=== PATIENT | male | born 1985 | race Two or more races ===

== ENCOUNTER 2019-03-03 21:00 | Emergency (ER) | payer MEDICARE, MEDICAID ==
[~2019-03-03 21:00] MED LIST: Phenytoin 100 MG Cap.ER ONE
[2019-03-03] MEDS ORDERED: Sodium Chloride 0.9% 1,000 ML IV ONE (21:23)
--- NOTE | 2019-03-03 23:43 | EDM.PDOC ---
ED HPI GENERAL MEDICAL PROBLEM - General Chief Complaint: General Stated Complaint: SEIZURE Time Seen by Provider: 03/03/19 21:40 Source of Information: Reports: Patient, Family History Limitations: Reports: Other (Patient has history of schizophrenia and possible delayed learning) - History of Present Illness INITIAL COMMENTS - FREE TEXT/NARRATIVE: This is a 33yo M brought into the ER for a grand mal seizure. He has had an initial episode about 1 year ago and was started on dilantin. He was out in the very warm weather today with a noticeable sun burn on b/l shoulders. He was outside for hours. He states at this time in the ER he feels much better already but groggy from the recent events. He has been taking his medications regularly but only takes his dilantin at night. Onset: Sudden Duration: Resolved Prior to Arrival Location: Reports: Generalized - Related Data Allergies Allergy/AdvReac Type Severity Reaction Status Date / Time No Known Allergies Allergy Verified 03/03/19 21:09 ED ROS GENERAL - Review of Systems Review Of Systems: ROS reveals no pertinent complaints other than HPI. ED EXAM, GENERAL - Physical Exam Exam: See Below Exam Limited By: No Limitations General Appearance: Alert, WD/WN, No Apparent Distress Eye Exam: Bilateral Eye: EOMI, PERRL Ears: Normal External Exam Nose: Normal Inspection Throat/Mouth: Normal Inspection Head: Atraumatic, Normocephalic Neck: Normal Inspection Respiratory/Chest: No Respiratory Distress, Lungs Clear, Normal Breath Sounds Cardiovascular: Normal Peripheral Pulses, Regular Rate, Rhythm Peripheral Pulses: 2+: Dorsalis Pedis (L), Dorsalis Pedis (R) GI/Abdominal: Normal Bowel Sounds Back Exam: Normal Inspection Extremities: Normal Inspection Neurological: Alert, Slow to Respond (He is at baseline per family) Psychiatric: Normal Affect, Normal Mood Skin Exam: Warm, Dry, Intact Course - Orders/Labs/Meds Orders: Active Orders 24 hr Category Date Time Status LITHIUM (ESKALITH(R)), SERUM Stat Lab 03/03/19 21:05 Received Labs: Laboratory Tests 03/03/19 03/03/19 Range/Units 21:05 21:05 WBC 8.0 (4.0-11.0) K/uL RBC 4.47 L (4.50-6.50) M/uL Hgb 13.9 (13.0-18.0) g/dL Hct 40.7 (40.0-54.0) % MCV 91 (76-96) fL MCH 31.1 (27.0-32.0) pg MCHC 34.2 (31.0-35.0) g/dL RDW 13.5 (11.0-16.0) % Plt Count 179 (150-400) K/uL MPV 10.8 H (6.0-10.0) fL Neut % (Auto) 65.1 (45.0-70.0) % Lymph % (Auto) 22.3 (20.0-40.0) % Boone % (Auto) 12.5 H (3.0-10.0) % Eos % (Auto) 0.0 L (1.0-5.0) % Baso % (Auto) 0.1 (0.0-0.5) % Neut # (Auto) 5.23 (2.00-7.50) K/uL Lymph # (Auto) 1.79 (1.50-4.00) K/uL Boone # (Auto) 1.00 H (0.20-0.80) K/uL Eos # (Auto) 0.00 L (0.04-0.40) K/uL Baso # (Auto) 0.01 L (0.02-0.10) K/uL Sodium 142 (136-145) mmol/L Potassium 4.3 (3.5-5.1) mmol/L Chloride 107 (98-107) mmol/L Carbon Dioxide 24.3 (21.0-32.0) mmol/L Anion Gap 15.0 (5.0-15.0) mmol/L BUN 15 (8-26) mg/dL Creatinine 1.30 (0.70-1.30) mg/dL Est Cr Clr Drug Dosing TNP Estimated GFR (MDRD) > 60 (>60) MLS/MIN BUN/Creatinine Ratio 11.5 (6-25) Glucose 104 H (74-100) mg/dL Calcium 9.0 (8.5-10.1) mg/dL Total Bilirubin 0.3 (0.0-1.0) mg/dL AST 28 (15-37) U/L ALT 35 (12-78) U/L Alkaline Phosphatase 108 (46-116) U/L Total Protein 6.9 (6.4-8.2) g/dL Albumin 3.7 (3.4-5.0) g/dL Globulin 3.2 (2.2-4.2) g/dL Albumin/Globulin Ratio 1.2 (0.8-2.0) TSH, Ultra Sensitive 4.412 H (0.358-3.740) uIU/mL Phenytoin 8.3 L (10.0-20.0) ug/mL Meds: Medications Discontinued Medications Generic Name Dose Route Start Last Admin Trade Name Gil PRN Reason Stop Dose Admin Sodium Chloride 1,000 mls @ 999 mls/hr 03/03/19 21:23 Normal Saline IV 03/03/19 22:23 .BOLUS ONE Departure - Departure Time of Disposition: 22:15 Disposition: Home, Self-Care 01 Condition: Good Clinical Impression: Grand mal seizure - Discharge Information Instructions: Seizure, Adult, [id number] Forms: ED Department Discharge Additional Instructions: Take Dilantin as previously prescribed and 200mg in am for next 3 days. Return to ER or clinic if symptoms reoccur or any other c/o. Increase fluid intake while being outside in sun more than norm. - Problem List & Annotations (1) Grand mal seizure SNOMED Code(s): 22197532 Code(s): G40.409 - OTH GENERALIZED EPILEPSY, NOT INTRACTABLE, W/O STAT EPI Status: Acute - Problem List Review Problem List Initiated/Reviewed/Updated: Yes - My Orders Last 24 Hours: My Active Orders 03/03/19 21:05 LITHIUM (ESKALITH(R)), SERUM Stat - Assessment/Plan Last 24 Hours: My Active Orders 03/03/19 21:05 LITHIUM (ESKALITH(R)), SERUM Stat Plan: Counseled on medication use and management. Discussed adjustment of dilantin and subtherapeutic levels at this time. Discussed BID dosing. Discussed f/u with Neurology raiza when he returns home. Discussed dehydration and keeping out of the hot weather. F/u as directed and as needed. Fortine done and mother to obtain results next week. Patient agrees with plan of care and feels back to baseline. Discussed with family and they are in agreement.
== END 2019-03-03 22:10 | disposition home or self-care (01) ==
LOC: LB.ED 21:00
DX: G40.409 Other generalized epilepsy and epileptic syndromes, not intractable, without status epilepticus (principal); Z79.899 Other long term (current) drug therapy
CPT/HCPCS: 36415; 80053; 80178; 80185; 84443; 85025; 96360; 99283; A0425; A0429; A9270; J7030